=== PATIENT | male | born 1935 | race Caucasian/White ===

== ENCOUNTER 2020-08-06 15:51 | Emergency (ER) | payer OTHER ==
[~2020-08-06] VITALS: Ht 167.6 cm; Wt 86.2 kg
[2020-08-06 16:55] LABS: BASOPHILS 1.2 % (0.0-2.0); EOSINOPHILS 3.1 % (0.0-3.0); HEMATOCRIT 41.2 % (42.0-52.0); HEMOGLOBIN 14.3 gm/dL (14.0-18.0); LYMPHOCYTES 24.6 % (24.0-44.0); MCH 32.9 pg (26.0-34.0); MCHC 34.8 g/dL (28.0-37.0); MCV 94.4 fL (80.0-100.0); MONOCYTES 11.9 % (1.0-8.0); PLATELET COUNT 213 thou/uL (150-400); POLYS 59.2 % (36.0-66.0); RBC 4.36 mil/uL (4.50-6.00); RDW 13.5 % (10.5-14.5); WBC 5.1 thou/uL (4.0-11.0)
[2020-08-06 16:56] LABS: ANION GAP 7 mmol/L (7-16); BUN 16 mg/dL (7-18); CALCIUM 9.4 mg/dL (8.5-10.1); CHLORIDE 107 mmol/L (98-107); CO2 27 mmol/L (21-32); GLUCOSE 128 mg/dL (74-106); POTASSIUM 3.9 mmol/L (3.5-5.1); SODIUM 141 mmol/L (136-145)
[2020-08-06 17:05] LABS: TROPONIN-I <0.06 ng/mL (<0.06)
[2020-08-06] MEDS ORDERED: IRBESARTAN150 MG PO (17:10)
[2020-08-06] MEDS ORDERED: SINGULAIR 10 MG10 M1 PO (17:10)
[2020-08-06] MEDS ORDERED: PROAIR HFA8.5 GM INH (17:10)
[2020-08-06 17:22] LABS: URINE BILIRUBIN NEGATIVE (Negative); URINE BLOOD 1+ (Negative); URINE CLARITY CLEAR; URINE COLOR YELLOW; URINE GLUCOSE-RANDOM* NEGATIVE (Negative); URINE KETONES NEGATIVE (Negative); URINE LEUKOCYTES-REFLEX NEGATIVE (Negative); URINE NITRITE-REFLEX NEGATIVE (Negative); URINE PROTEIN (DIPSTICK) NEGATIVE (Negative); URINE UROBILINOGEN 0.2 E.U./dl (0.2-1.0)
[2020-08-06 17:30] LABS: BACTERIA-REFLEX None Seen /HPF (None Seen); CASTS None Seen /LPF (None Seen); CRYSTALS None Seen /LPF (None Seen); SQUAMOUS None Seen /LPF (0-3); URINE RBC 1-2 Rare /HPF (NONE SEEN); URINE WBC-REFLEX 0-5 Rare /HPF (0-5)
[2020-08-06] MEDS ORDERED: ATIVAN0.5 M1 PO (18:23)
[2020-08-06 18:36] VITALS: BP 149/71
--- NOTE | 2020-08-07 09:58 | EKG ---
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 08/07/20 0958 1703 1703 Jaime Andrea MD, FACC /EPI
== END 2020-08-06 18:35 | disposition home or self-care (01) ==
LOC: ER 15:51
PROVIDERS: Nurse Practitioner
DX: R42 Dizziness and giddiness (principal); I10 Essential (primary) hypertension; J45.909 Unspecified asthma, uncomplicated; Z90.89 Acquired absence of other organs; Z88.6 Allergy status to analgesic agent